=== PATIENT | female | born 2000 | race African-American/Black ===

== ENCOUNTER 2020-08-02 11:58 | Emergency (ER) | payer MEDICAID ==
[~2020-08-02] VITALS: Ht 170.2 cm; Wt 66.0 kg
[2020-08-02] MEDS ORDERED: TRAMADOL 50MG TABLET PO ONE (12:30)
[2020-08-02] MEDS ORDERED: ACETAMINOPHEN 325MG TABLET PO ONE (12:30)
[2020-08-02] MEDS ORDERED: LIDOCAINE HCL/EPINEPHRINE 1%-EPI 1:100,000 20 ML VIAL INFIL NR (15:22)
[2020-08-02] MEDS ORDERED: TETANUS, DIPHTHERIA, PERTUSSIS VAC/PF 0.5ML (>7YR OLD) IM ONE (15:30)
[2020-08-02] MEDS ORDERED: BACITRACIN ZINC OINT UDPKT TOP ONE (15:30)
[2020-08-02] MEDS ORDERED: LIDOCAINE HCL/EPINEPHRINE 1%-EPI 1:100,000 10 ML VIAL IJ ONE (15:30)
[2020-08-02] MEDS ORDERED: IBUP-2029 MT (16:03)
[2020-08-02 16:29] VITALS: BP 121/59
== END 2020-08-02 16:31 | disposition home or self-care (01) ==
LOC: ER 11:58
DX: S09.8XXA Other specified injuries of head, initial encounter (principal); S01.01XA Laceration without foreign body of scalp, initial encounter; S06.0X9A Concussion with loss of consciousness of unspecified duration, initial encounter; M54.2 Cervicalgia; F17.200 Nicotine dependence, unspecified, uncomplicated; V49.50XA Passenger injured in collision with unspecified motor vehicles in traffic accident, initial encounter; Y93.89 Activity, other specified; Y92.410 Unspecified street and highway as the place of occurrence of the external cause; Z91.041 Radiographic dye allergy status
CPT/HCPCS: 12001; 70450; 72125; 90471; 90715; 99285; A4217; J3490; Z7610